=== PATIENT | male | born 1995 ===

== ENCOUNTER 2017-10-16 11:46 | Emergency (ER) | payer MEDICAID ==
[2017-10-16 11:46] VITALS: BMI 22.1
[2017-10-16 12:03] VITALS: BP 140/72; PULSE 83; RESP 18; TEMP 98.1; O2SAT 100
--- NOTE | 2017-10-16 13:15 | ED PDOC ---
Lower Extremity Pain/Injury Time Seen by Provider: 10/16/17 12:14 Chief Complaint (Nursing): Lower Extremity Problem/Injury Chief Complaint (Provider): Lower Extremity Problem/Injury History Per: Patient History/Exam Limitations: no limitations Onset/Duration Of Symptoms: Days (x2) Current Symptoms Are (Timing): Still Present Additional Complaint(s): 22 year old male presents to the ED with mother for evaluation of right ankle and foot pain s/p [place] [employer] [place]. Patient states yesterday after twisting it, the pain was a 10/10, but today it is an 8/10. He reports difficulty ambulating, but denies radiation of the pain elsewhere. His last reported Tylenol dosage was yesterday at 19:00. Otherwise, (-) head injury, (-) loss of consciousness. No other complaints at present. Vaccinations up to date. PMD: Shaik Cotton Past Medical History Reviewed: Historical Data, Nursing Documentation, Vital Signs Vital Signs: Last Vital Signs Temp 98.1 F 10/16/17 12:02 Pulse 83 10/16/17 12:02 Resp 18 10/16/17 12:02 BP 140/72 10/16/17 12:02 Pulse Ox 100 10/16/17 12:02 - Medical History PMH: Asthma, Depression - Surgical History Surgical History: Appendectomy - Family History Family History: States: Unknown Family Hx - Living Arrangements Living Arrangements: With Family - Social History Current smoker - smoking cessation education provided: No Alcohol: None Drugs: Denies - Home Medications Home Medications: Ambulatory Orders Medication Instructions Recorded QUEtiapine [SEROquel] 50 mg PO HS #30 tab 05/17/16 Sertraline [Zoloft] 25 mg PO DAILY #30 tab 05/17/16 Acetaminophen [Acetaminophen 8 650 mg PO Q8 PRN #21 tablet.er 10/16/17 Hour] Ibuprofen [Motrin Tab] 600 mg PO Q6 PRN #28 tab 10/16/17 - Allergies Allergies/Adverse Reactions: Allergies Allergy/AdvReac Type Severity Reaction Status Date / Time No Known Allergies Allergy Verified 10/16/17 12:07 Review of Systems ROS Statement: Except As Marked, All Systems Reviewed And Found Negative Constitutional: Negative for: Other (head injury) Musculoskeletal: Positive for: Foot Pain (right foot and ankle) Neurological: Negative for: Other (loss of consciousness) Physical Exam - Reviewed Nursing Documentation Reviewed: Yes Vital Signs Reviewed: Yes - Physical Exam Comments: GENERAL APPEARANCE: Patient is awake, alert, oriented x 3, in no acute distress. Resting comfortably. SKIN: Warm, dry; (-) cyanosis. RIGHT LOWER EXTREMITY: Moderate effusion to right ankle and mid foot. (+) Diffuse tenderness to ankle, mid foot, hind foot. (+) mild ecchymosis to dorsum and lateral aspect of foot. Sensation and capillary refill intact. (+) Decreased ROM in all directions secondary to pain in ankle. (-) palpable deformity. Remainder of LE normal ROM and nontender. HEART AND CARDIOVASCULAR: (-) irregularity; (-) murmur, (-) gallop. CHEST AND RESPIRATORY: (-) rales, (-) rhonchi, (-) wheezes; breath sounds equal. Speaking in full sentences, respirations even and nonlabored. ABDOMEN: Soft, (-) distention, (-) tenderness, (-) guarding. NEURO AND PSYCH: Mental status as above. (-) focal deficit (-) facial asymmetry. EOMI and painless. Speech clear. Normal strength and tone. - ECG O2 Sat by Pulse Oximetry: 100 (RA) Pulse Ox Interpretation: Normal Medical Decision Making Medical Decision Making: Time: 1235 Initial Impression: acute right foot and ankle injury s/p fall, r/o fracture Initial Plan: --Toradol 30 mg IM --Right ankle XR --Right foot XR 1340 Foot and ankle XRs significant for fx to base of 5th metatarsal, as read by DELIO Thapa. Consult placed with podiatry in light of XR findings. 1348 Case discussed with podiatry resident, Dr Donavon Vasquez, who is agreeable to evaluating patient in ED. 1430 Podiatry at bedside. Patient reports well controlled pain and declines additional pain medication at this time. 1455 Per podiatry evaluation, patient to be placed in posterior short leg splint and can follow up in podiatry clinic. Patient supplied with crutches and instructed on crutch walking by ED staff. 1520 Posterior short leg splint in place. NV intact after placement. On re-evaluation, patient reports improvement of symptoms. On exam, patient remains AAOx3, in no acute distress. Neck is supple, lungs CTA, cardiac RRR, neuro exam shows no focal findings. VSS, stable for discharge. Diagnostic results d/w the patient in great detail. Dx of metatarsal fracture, acute foot pain and swelling s/p fall from skateboard d/w the patient. Based on history, exam and diagnostic results plan will be for discharge and outpatient podiatry follow up. Advised to follow up with primary care physician/podiatry in 1-2 days without fail. Advised to take medication as prescribed. Return to the emergency room at any time for any new or worsening symptoms. Patient states he fully agrees with and understands discharge instructions. States that he agrees with the plan and disposition. Verbalized and repeated discharge instructions and plan. I have given the patient opportunity to ask any additional questions. Scribe Attestation: Documented by Zandra Hilario, acting as a scribe for Alejandrina Joseph PA-C. Provider Scribe Attestation: All medical record entries made by the Scribe were at my direction and personally dictated by me. I have reviewed the chart and agree that the record accurately reflects my personal performance of the history, physical exam, medical decision making, and the department course for this patient. I have also personally directed, reviewed, and agree with the discharge instructions and disposition. Disposition - Clinical Impression Clinical Impression: Fracture of metatarsal bone of right foot, Foot pain, right, Fall from skateboard - Patient ED Disposition Is Patient to be Admitted: No Counseled Patient/Family Regarding: Studies Performed, Diagnosis, Need For Followup, Rx Given - Disposition Referrals: Shaik Cotton MD [Primary Care Provider] - Podiatry Clinic [Outside] Disposition: Routine/Home Disposition Time: 15:20 Condition: STABLE Additional Instructions: FOLLOW UP DIRECTED BY PODIATRY RETURN TO ED WITH ANY NEW OR WORSENING SYMPTOMS TAKE MEDICATION NEEDED FOR PAIN KEEP SPLINT CLEAN AND DRY REST ICE COMPRESS(SPLINT) ELEVATE Prescriptions: Acetaminophen [Acetaminophen 8 Hour] 650 mg PO Q8 PRN #21 tablet.er PRN Reason: Pain, Moderate (4-7) Ibuprofen [Motrin Tab] 600 mg PO Q6 PRN #28 tab PRN Reason: Pain, Severe (8-10) Instructions: Foot Fracture (DC), Foot Avulsion Fracture (DC) Forms: [employer] ([place]vian), [facility] ED School/Work Excuse Print Language: URDU - POA Present On Arrival: Falls Or Trauma
--- NOTE | 2017-10-16 14:25 | RAD ---
PROCEDURE: Right Ankle Radiographs. HISTORY: s/p fall ,joint pain COMPARISON: None FINDINGS: BONES: Minimally displaced fracture of the base of the 5th metatarsal. JOINTS: Ankle mortise maintained. Talar dome intact SOFT TISSUES: Small ankle joint effusion. OTHER FINDINGS: None. IMPRESSION: Minimally displaced fracture of the 5th metatarsal.
--- NOTE | 2017-10-16 14:26 | RAD ---
PROCEDURE: Right Foot Radiographs. HISTORY: s/p fall ,joint pain COMPARISON: None. FINDINGS: BONES: Minimally displaced intraarticular fracture of the base of the 5th metatarsal. JOINTS: Normal. SOFT TISSUES: Normal. OTHER FINDINGS: All ankle joint effusion. IMPRESSION: Minimally displaced intra-articular fracture of the base of the 5th metatarsal.
--- NOTE | 2017-10-16 15:36 | CP.PCM.CON ---
History of Present Illness - History of Present Illness History of Present Illness: Podiatry Consult notes for attending Marek Griffith 22 y/o M patient seen and evaluated at the bedside for pain in his right foot. Patient states that while he was skiing yesterday he tripped down and twisted his foot inward. patient states that he felt pain 9/10 by that time but the pain went down after using pain medications Tylenol. Patient states that the outer part of his foot got minimally swollen. Patient is sitting comfortably i bed and not in acute distress. patient is AAO X 3. Patient denies any other pedal complaint. patient denies any F/N/V/C or SOB recently. PMH: None PSH: Appendectomy 4 years ago Allergies: NKDA S Hx: Denies smoking, using EtOH or illicit drug use. Review of Systems - Review of Systems Review of Systems: As Per HPI Past Patient History - Past Social History Alcohol: None Drugs: Denies - CARDIAC Hx Hypertension: No - PULMONARY Hx Asthma: Yes - NEUROLOGICAL Hx Seizures: No - HEENT Hx HEENT Problems: No - RENAL Hx Chronic Kidney Disease: No - ENDOCRINE/METABOLIC Hx Endocrine Disorders: No - HEMATOLOGICAL/ONCOLOGICAL Hx Human Immunodeficiency Virus (HIV): No - INTEGUMENTARY Hx Dermatological Problems: No - MUSCULOSKELETAL/RHEUMATOLOGICAL Hx Musculoskeletal Disorders: No - GASTROINTESTINAL Hx Gastrointestinal Disorders: No - GENITOURINARY/GYNECOLOGICAL Hx Sexually Transmitted Disorders: No - PSYCHIATRIC Hx Depression: Yes - SURGICAL HISTORY Hx Appendectomy: Yes - ANESTHESIA Hx Anesthesia: Yes Hx Anesthesia Reactions: No Meds Home Medications: Home Medication List Medication Instructions Recorded Confirmed Type Acetaminophen [Acetaminophen 8 650 mg PO Q8 PRN #21 tablet.er 10/16/17 Rx Hour] Ibuprofen [Motrin Tab] 600 mg PO Q6 PRN #28 tab 10/16/17 Rx Allergies/Adverse Reactions: Allergies Allergy/AdvReac Type Severity Reaction Status Date / Time No Known Allergies Allergy Verified 10/16/17 12:07 Physical Exam - Constitutional Appears: Well, Non-toxic, No Acute Distress - Head Exam Head Exam: ATRAUMATIC, NORMOCEPHALIC - Extremities Exam Additional comments: Lower extremity focused exam Vasc: DP/PT 2/4 b/l. Cap refill < 3 sec in all digits. Temp gradient warm to cool. Non pitting edema noted at the base of the right 5th met. and in the perimalleolar area. Neuro: Gross sensation intact, Protective sensation intact. Derm: No open lesions, no clinical signs of infections. localized area of swelling at the right 5th met base. MSK: Pain on palpation of the right 5th met. base. Pain with ROM of the little toe. Muscle power intact in all groups 5/5. No pain on palpation of the ATFL and CFL. - Neurological Exam Neurological exam: Alert, Oriented x3 - Psychiatric Exam Psychiatric exam: Normal Affect, Normal Mood Results - Vital Signs Recent Vital Signs: Last Vital Signs Temp 98.1 F 10/16/17 12:02 Pulse 83 10/16/17 12:02 Resp 18 10/16/17 12:02 BP 140/72 10/16/17 12:02 Pulse Ox 100 10/16/17 14:57 Assessment & Plan - Assessment and Plan (Free Text) Assessment: 22 y/o M patient seen and evaluated for right 5th metatarsal base fracture. Plan: Patient seen and evaluated at the ED Plan discussed in details with attending Dr. Jara X-ray reviewed and showed minimally displaced right 5th met. fracture. Posterior splint and modified Vasques compression applied to the patient right LE. Patient instructed to stay NWB and using crutches to ambulate. Dispensed a pair of crutches. Patient instructed to keep the leg elevated and apply icing. Patient instructed to use OTC Tylenol if he has pain. Patient questions and concerns answered to his satisfaction. Patient expressed verbal understanding. Patient to F/U in the podiatry clinic. - Date & Time Date: 10/16/17 Time: 15:43
== END 2017-10-16 15:16 | disposition home or self-care (01) ==
LOC: H.ER 11:46
DX: S92.351A Displaced fracture of fifth metatarsal bone, right foot, initial encounter for closed fracture (principal); V00.131A Fall from skateboard, initial encounter; Y93.51 Activity, roller skating (inline) and skateboarding; F32.9 Major depressive disorder, single episode, unspecified
CPT/HCPCS: 29515; 73610; 73630; 96372; 99283; J1885

== ENCOUNTER 2017-10-31 06:34 | Day surgery (SDC) | payer MEDICAID ==
[2017-10-28 10:40] VITALS: BMI 24.6
--- NOTE | 2017-10-31 07:14 | CP.PCM.PN ---
Subjective - Date & Time of Evaluation Date of Evaluation: 10/31/17 Time of Evaluation: 07:07 - Subjective Subjective: 22 y/o M patient seen and evaluated at the bedside for preoperative evaluation for ORIF surgery to his right 5th met. base fracture. Patient states that he tripped 2 weeks ago while he was skiing and he twisted his right foot inward. Patient states that he came directly to the ED where X-ray done and revealed fracture in his right foot. Patient states that he was put in a splint and given pair of crutches. He states that he didn't bear weight on his foot since then. He states that he came to the clinic for F/U last Tuesday where surgery discussed with him. Patient states that he agreed to do the surgery. Patient denies any pain in his right foot now. Patient states that he is didn't eat anything since 7:00 pm yesterday and only drank water at 12:00 am today. Patient is sitting comfortably in bed and not in acute distress. patient is AAO X 3. Patient denies any other pedal complaint. patient denies any F/N/V/C or SOB recently. PMH: None PSH: Appendectomy 4 years ago Allergies: NKDA S Hx: Denies smoking, using EtOH or illicit drug use. Objective - Constitutional Appears: Well, Non-toxic, No Acute Distress - Head Exam Head Exam: ATRAUMATIC, NORMOCEPHALIC - Extremities Exam Additional comments: Right LE focused exam: Patient Right LE was in posterior splint which was left intact. Vasc: Cap refill < 3 sec X 5. Neuro: Protective and gross sensation intact. - Neurological Exam Neurological Exam: Alert, Awake, Oriented x3 - Psychiatric Exam Psychiatric exam: Normal Affect, Normal Mood Assessment and Plan - Assessment and Plan (Free Text) Assessment: 22 y/o M patient seen and evaluated preoperatively for ORIF of right 5th metatarsal base fracture. Plan: Pt was seen and examined in SDS Pt NPO status was confirmed All pre-op testing and clearance in chart Pt has exhausted all conservative treatment at this time and is opting for surgical intervention Pt was explained procedure and post-operative course All pt's questions were answered to satisfaction No guarantees were made Pt understands all risks, benefits and complications of procedure Pt will follow-up with Dr. Lo in the podiatry clinic within 1 week of surgery
[2017-10-31 07:20] LABS: BASO % 0.5 % (0.0-2.0); EOS # 0.1 K/uL (0.0-0.7); EOS % 1.5 % (0.0-4.0); LYMPH # 2.2 K/uL (1.0-4.3); LYMPH % 33.6 % (20.0-40.0); MEAN CELL VOLUME 89.9 fl (80.0-94.0); MEAN CORPUSCULAR HEMOGLOBIN 30.9 pg (27.0-31.0); MEAN CORPUSCULAR HGB CONC 34.4 g/dL (33.0-37.0); MEAN PLATELET VOLUME 7.3 fl (7.2-11.7); MONO # 0.5 K/uL (0.0-0.8); MONO % 7.3 % (0.0-10.0); NEUT # 3.7 K/uL (1.8-7.0); NEUT % 57.1 % (50.0-75.0); RBC 5.18 Mil/uL (4.40-5.90); RED CELL DISTRIBUTION WIDTH 12.6 % (11.5-14.5); WHITE BLOOD COUNT 6.4 K/uL (4.8-10.8)
--- NOTE | 2017-10-31 07:20 | CP.SDSHP ---
Same Day Surgery H & P - History Proposed Procedure: ORIF of right 5th metatarsal base fracture Pre-Op Diagnosis: Right 5th metatarsal base fracture. - Allergies Allergies: Allergies No Known Allergies Allergy (Verified 10/28/17 10:40) - {Optional Preform as Required} Integument: WNL - Date & Time Date: 10/31/17 Time: 07:20 Short Stay Discharge - Short Stay Discharge Admitting Diagnosis/Reason for Visit: S92.351A Disposition: HOME/ ROUTINE Referrals: Shaik Cotton MD [Primary Care Provider] - Additional Instructions (Diet, Activity): -Patient in good/stable condition for discharge home -Pt to resume medications per medical reconciliation -Resume regular diet - Please keep dressing clean, dry, & intact to surgical site -Use plastic bag over bandage for showering -Wear post op shoe at all times when ambulating -Call clinic if you see signs of infection (redness, swelling, malodor) -Please make an appointment to see Dr. Lo in podiatry clinic within 1 week for post-op check Progress Note/Discharge Note with Instructions: - Patient evaluated bedside in recovery s/p surgical procedure. - After surgical procedure patient in NAD - (+) Void, (+) Appetite - Capillary refill time <3s and NVSI intact. - Patient denies complaints at this time - Post operative instructions and plan of care explained to patient at length. - Pt. acknowledges understanding. - Patient stable for DC per podiatric surgery
[2017-10-31] MEDS ORDERED: Bupivacaine 0.25% Inj(30mL) IJ ONE ×2 (07:22→08:10)
[2017-10-31] MEDS ORDERED: ceFAZolin 1 GM in Sodium Chloride 0.9% 100 ML IVPB STA (07:22)
[2017-10-31] MEDS ORDERED: Sodium Chloride 0.9% 1,000 ML IV SCH (07:30)
[2017-10-31] MEDS ORDERED: Lactated Ringer's 1,000 ML IV ONE (07:30)
[2017-10-31] MEDS ORDERED: Lidocaine 2% MPF (5 ml) Inj ONE (07:54)
[2017-10-31] MEDS ORDERED: Bupivacaine HCl 0.25% PF (30 ml) Inj ONE ×2 (07:54→08:17)
[2017-10-31] MEDS ORDERED: ceFAZolin IV 2 gm in Dextrose 2 GM/50 ML BAG IVPB ONE (07:55)
[2017-10-31] MEDS ORDERED: Lidocaine 4% (Laryng-O-Jet) Kit MM ONE (07:56)
[2017-10-31] MEDS ORDERED: Propofol 10 mg/ml Inj (20 ML) ONE (07:56)
[2017-10-31] MEDS ORDERED: Midazolam 2 MG/2 ML VIAL ONE (07:56)
[2017-10-31] MEDS ORDERED: Rocuronium 10 mg/ml (5 ml) ONE (07:56)
[2017-10-31] MEDS ORDERED: Neostigmine 1:1000 (1 mg/ml) Inj ONE (09:19)
--- NOTE | 2017-10-31 09:54 | PCM.SURG1 ---
Surgeon's Initial Post Op Note - Surgeon's Notes Surgeon: Torito LoM [employer] Worker: Elyse Chau PGY1. Damaris Espinoza PGY3. Myra Rey PGY3 Type of Anesthesia: General Endo, Local Anesthesia Administered By: Quintin Pre-Operative Diagnosis: Fracture right 5th metatrasal bone base. Operative Findings: See Dictation. I: 10 cc 0.25% marcaine preoperative. 10 cc 0.25% marcaine preoperative. M: - 5th met Hook plate. - 14, 2.4 Nonlocking screw. - 14, 2.4 Nonlocking screw. - 10, 2.4 Locking screw. 3-0, 4-0 Vicryl and 5-0 prolene Post-Operative Diagnosis: Same Operation Performed: ORIF of right 5th metatarsal bone base fracture. Specimen/Specimens Removed: None Estimated Blood Loss: EBL {In ML}: 1 Blood Products Given: N/A Drains Used: No Drains Post-Op Condition: Good Date of Surgery/Procedure: 10/31/17 Time of Surgery/Procedure: 10:00
[2017-10-31] MEDS ORDERED: Dexamethasone 4 mg/1 ml IVP PRN (10:00)
[2017-10-31] MEDS ORDERED: HYDROmorphone 0.5 mg/0.5 ml ISec IVP PRN (10:00)
[2017-10-31] MEDS ORDERED: Oxycodone/Acetaminophen 5/325 mg Tab PO PRN ×2 (10:01)
[2017-10-31] MEDS ORDERED: Lactated Ringer's 500 ML IV ONE ×2 (11:30)
[2017-10-31 12:11] VITALS: RESP 18
[2017-10-31] MEDS ORDERED: Oxycodone/Acetaminophen 5/325 mg Tab PO ONE (12:37)
[2017-10-31 16:03] VITALS: BP 125/80; PULSE 79; TEMP 98.4; O2SAT 98
--- NOTE | 2017-10-31 16:26 | RAD ---
Date of service: 10/31/2017 PROCEDURE: Fluoroscopy in excess of 1 hour. HISTORY: ORIF RIGHT FOOT COMPARISON: None TECHNIQUE: Standard protocol for this study/examination. FINDINGS: Total fluoroscopic time (continuous mode) utilized during the procedure 51.4 (seconds) IMPRESSION: Total exam DLP: 2.20 (mGy)
--- NOTE | 2017-11-01 18:28 | OP ---
PROCEDURE DATE: 10/31/2017 PREOPERATIVE DIAGNOSIS: Right foot first metatarsal displaced fracture. POSTOPERATIVE DIAGNOSIS: Right foot first metatarsal displaced fracture. PROCEDURE PERFORMED: Right foot fifth metatarsal open reduction with internal fixation. SURGEON: Torito Lo DPM. ENVIRONMENTAL SERVICES DIRECTOR: Elyse Chau, PGY-3/ , PGY-3, and Dr. Braden PGY-3. ANESTHESIOLOGIST: Prema Ribeiro MD. ANESTHESIA: General LMA. INDICATIONS: The patient is a 22-year-old male with the above-mentioned diagnosis. The patient has exhausted multiple forms of conservative treatment at this time and now requested surgical intervention. The patient signed the consent after careful explanation of risk, benefit, complication, and alternatives for surgical procedure. No guarantees were given nor implied. The patient was brought into the operating room and placed on the operating room table in a lateral decubitus position. A time-out was performed for identification of the correct patient and procedure. The patient received a total of 10 mL of 0.25% Marcaine plain in a local block-type fashion to the right foot. Once general and local anesthesia was achieved, the right foot was then prepped and draped in normal sterile manner. The patient's right foot was elevated and a pneumatic thigh tourniquet was inflated with 350 mmHg and the procedure began. DESCRIPTION OF PROCEDURE: Attention was directed towards the lateral aspect of the right foot where the base of the styloid process of the fifth metatarsal was palpated. A 4 cm linear longitudinal incision was made overlying the base of the fifth metatarsal using a #15 blade. The incision was deepened through subcutaneous tissue with care being taken to identify and retract all vital neurovascular structures. All bleeders were cauterized and ligated as necessary. A periosteal incision was then made at the based of the fifth metatarsal and the fracture site was visualized. Using a curette, the hematoma was excisionally debrided from the fracture site. The peroneal tendon was visualized and noted to be intact dorsally to the fracture site. Next, the [place] medical plate was placed onto the styloid process and the lateral aspect of the fifth metatarsal. A #14 x 2.4 mm nonlocking screw was placed and a 10 times 2.4 mm screw and 12 times 2.4 mm locking screws were then inserted into the plate. Excellent compression was noted at the fracture site under C arm guidance. The incision site was then copiously irrigated with sterile normal saline. The subcutaneous tissue was then reapproximated with 3-0 and 4-0 Vicryl and a skin was reapproximated with 5-0 Prolene. Postoperative injection of 10 mL of 0.25% Marcaine plain was given in a local block-type fashion to the right foot. Postoperative dressing including Xeroform, 4 x 4, gauze, Ari, Webril, Jonh, and a posterior splint was applied to the right lower extremity. POSTOPERATIVE CONDITION: The patient tolerated the anesthesia and the procedure well and was escorted to the recovery room with vital signs stable and neurovascular intact to the right foot. The patient will follow up with Dr. Lo as an outpatient. Elyse Chau DPM Jo # [id number]
== END 2017-10-31 16:25 | disposition home or self-care (01) ==
LOC: H.OPSURG 06:34
PROVIDERS: ATTEND Podiatrist Foot & Ankle Surgery
DX: S92.351A Displaced fracture of fifth metatarsal bone, right foot, initial encounter for closed fracture (principal); F32.9 Major depressive disorder, single episode, unspecified; V00.131A Fall from skateboard, initial encounter
CPT/HCPCS: 28485; 36415; 85025; 86850; 86900; 97161; G8978; G8979; G8980; J0690; J2001; J2175; J2250; J2405; J2704; J2710; J3010; J7120